=== PATIENT | female | born 1975 | race Caucasian/White ===

== ENCOUNTER → 2017-06-03 | Outpatient (REF) | payer OTHER | LOC: M SFHCWAGY 09:15 | PROVIDERS: ATTEND Nurse Practitioner Family | DX: Z12.4 Encounter for screening for malignant neoplasm of cervix (principal) ==

== ENCOUNTER → 2017-06-03 | Outpatient (CLI) | payer OTHER ==
--- NOTE | 2017-06-03 09:33 | REPMRS ---
Patient History The patient states she had a clinical breast exam in 05/2017. Family history of breast cancer in maternal cousin at age 38. Digital Woman Screen Mammo: June 03, 2017 - Exam #: [id number] Bilateral CC and MLO view(s) were taken. Technologist: Radha Gongora, Technologist FINDINGS: The breast tissue is heterogeneously dense. This may lower the sensitivity of mammography. There is no evidence of cancer on this mammogram. ASSESSMENT: BI-RADS/ACR category 2 mammogram. Benign finding(s). Recommendation Routine screening mammogram of both breasts in 1 year (for women over age 40). This mammogram was interpreted with the aid of an FDA-approved computer-aided dectection system. Electronically Signed By: Arthur Ibarra MD 06/03/17 0932
== END ==
LOC: M WHC 08:12
PROVIDERS: ATTEND Nurse Practitioner Family
DX: Z12.31 Encounter for screening mammogram for malignant neoplasm of breast (principal); R92.8 Other abnormal and inconclusive findings on diagnostic imaging of breast

== ENCOUNTER → 2017-10-10 | Outpatient (REF) | payer OTHER | LOC: M SFHCPLAZ 13:37 | DX: N39.0 Urinary tract infection, site not specified (principal) ==

== ENCOUNTER 2017-12-15 09:46 | Day surgery (SDC) | payer OTHER ==
[~2017-12-15 09:46] MED LIST: LIDOCAINE 2% INJ 100 MG/5 ML SDV (FOR ANES.) As Ordered; MIDAZOLAM INJ 2 MG/2 ML VIAL (J2250) As Ordered; PROPOFOL 200 MG/20 ML VIAL As Ordered; ROCURONIUM BROMIDE 50 MG/5 ML VIAL As Ordered; fentaNYL 250 MCG/5 ML INJECTION (J3010) As Ordered
[2017-12-15] MEDS ORDERED: LIDOCAINE 1% MDV 20ML VIAL SQ (10:00)
[2017-12-15] MEDS ORDERED: LR 1,000 ML IV (10:00)
[2017-12-15 10:18] LABS: HEMATOCRIT 36.4 % (36.0-47.0); HEMOGLOBIN 12.6 g/dl (12.0-15.5); MEAN CORPUSCULAR HEMOGLOBIN 31.4 pg (27.0-33.0); MEAN CORPUSCULAR HGB CONC 34.6 g/dl (32.0-36.5); MEAN CORPUSCULAR VOLUME 90.8 fl (80.0-96.0); PLATELET COUNT, AUTOMATED 215 10^3/uL (150-450); RED BLOOD COUNT 4.01 10^6/uL (4.00-5.40); RED CELL DISTRIBUTION WIDTH 11.3 % (11.5-14.5); WHITE BLOOD COUNT 7.6 10^3/uL (4.0-10.0)
[2017-12-15 10:52] LABS: CONTROL LINE HCG INT CTR LINE PRESENT; HCG, SERUM QUALITATIVE NEGATIVE (NEGATIVE)
[2017-12-15] MEDS ORDERED: SCOPOLAMINE 1MG TRANSDERMAL PATCH As Ordered (11:08)
[2017-12-15] MEDS: SCOPOLAMINE 1MG TRANSDERMAL PATCH TOP (11:45)
[2017-12-15] MEDS ORDERED: MORPHINE 1MG/ML IN 0.9% NACL 100ML IV BAG As Ordered (13:11)
[2017-12-15] MEDS ORDERED: fentaNYL 100 MCG/2 ML INJECTION (J3010) As Ordered (13:29)
[2017-12-15] MEDS: fentaNYL 100 MCG/2 ML INJECTION (J3010) IV ×4 (13:35→13:55)
[2017-12-15] MEDS ORDERED: MORPHINE 1MG/ML IN 0.9% NACL 100ML IV BAG IV (14:30)
[2017-12-15] MEDS ORDERED: NALBUPHINE HCL 10 MG/ML AMP (J2300) IV (14:30)
[2017-12-15] MEDS ORDERED: EPIDURAL/PCA KEYS XX (14:30)
[2017-12-15] MEDS: LR 1,000 ML IV ×2 (14:30→19:55)
[2017-12-15] MEDS ORDERED: NALOXONE INJ 0.4 MG/1 ML VIAL (J2310) IV (14:30)
[2017-12-15] MEDS ORDERED: diphenhydrAMINE INJ 50MG/ML VIAL (J1200) IV (14:30)
[2017-12-15] MEDS ORDERED: ONDANSETRON 4MG/2ML VIAL (J2405) IV (14:30)
[2017-12-15] MEDS ORDERED: PERCOCET 5MG/325MG TAB PO (14:30)
[2017-12-15] MEDS: IBUPROFEN 600 MG TAB PO (19:56)
[2017-12-16] MEDS: IBUPROFEN 600 MG TAB PO ×2 (02:22→09:17)
[2017-12-16] MEDS: LR 1,000 ML IV (02:22)
[2017-12-16] MEDS ORDERED: NORCO, ANEXSIA 5/325MG TABLET (HYDROcodone/ACETAMINOPHEN) PO (06:00)
[2017-12-16 06:32] LABS: HEMATOCRIT 31.3 % (36.0-47.0); HEMOGLOBIN 10.9 g/dl (12.0-15.5); MEAN CORPUSCULAR HEMOGLOBIN 31.7 pg (27.0-33.0); MEAN CORPUSCULAR HGB CONC 34.8 g/dl (32.0-36.5); PLATELET COUNT, AUTOMATED 203 10^3/uL (150-450); RED BLOOD COUNT 3.44 10^6/uL (4.00-5.40); RED CELL DISTRIBUTION WIDTH 11.3 % (11.5-14.5); WHITE BLOOD COUNT 16.2 10^3/uL (4.0-10.0)
== END 2017-12-16 09:55 | disposition home or self-care (01) ==
LOC: M SDC 12-16 09:55 → M PED 14:48
DX: R10.2 Pelvic and perineal pain (principal); N94.10 Unspecified dyspareunia; L98.9 Disorder of the skin and subcutaneous tissue, unspecified; Z72.0 Tobacco use
CPT/HCPCS: 58291

== ENCOUNTER → 2018-02-13 | Outpatient (REF) | payer OTHER ==
[2018-02-13 12:07] LABS: HEMATOCRIT 38.6 % (36.0-47.0); HEMOGLOBIN 13.3 g/dl (12.0-15.5); MEAN CORPUSCULAR HEMOGLOBIN 31.1 pg (27.0-33.0); MEAN CORPUSCULAR HGB CONC 34.5 g/dl (32.0-36.5); MEAN CORPUSCULAR VOLUME 90.4 fl (80.0-96.0); PLATELET COUNT, AUTOMATED 265 10^3/uL (150-450); RED BLOOD COUNT 4.27 10^6/uL (4.00-5.40); RED CELL DISTRIBUTION WIDTH 11.8 % (11.5-14.5); WHITE BLOOD COUNT 8.5 10^3/uL (4.0-10.0)
[2018-02-13 12:51] LABS: TOTAL 25(OH) VITAMIN D 19.3 NG/ML (30.0-100.0)
[2018-02-13 13:01] LABS: FREE T4 1.08 NG/DL (0.76-1.46)
== END ==
LOC: M SFHCPLAZ 09:25
DX: R53.83 Other fatigue (principal)

== ENCOUNTER → 2018-11-20 | Outpatient (REF) | payer OTHER ==
[~2018-11-20] MED LIST changes: +IBUP-1022 PO; -LIDOCAINE 2% INJ 100 MG/5 ML SDV (FOR ANES.) As Ordered; -MIDAZOLAM INJ 2 MG/2 ML VIAL (J2250) As Ordered; +NORC1TAB7 PO; -PROPOFOL 200 MG/20 ML VIAL As Ordered; -ROCURONIUM BROMIDE 50 MG/5 ML VIAL As Ordered; -fentaNYL 250 MCG/5 ML INJECTION (J3010) As Ordered
[2018-11-20 10:18] LABS: HEMATOCRIT 39.9 % (36.0-47.0); HEMOGLOBIN 13.6 g/dl (12.0-15.5); MEAN CORPUSCULAR HGB CONC 34.1 g/dl (32.0-36.5); MEAN CORPUSCULAR VOLUME 93.9 fl (80.0-96.0); PLATELET COUNT, AUTOMATED 306 10^3/uL (150-450); RED BLOOD COUNT 4.25 10^6/uL (4.00-5.40); WHITE BLOOD COUNT 10.2 10^3/uL (4.0-10.0)
[2018-11-20 10:54] LABS: CHOLESTEROL RISK RATIO 3.711 (<5)
[2018-11-20 10:59] LABS: TOTAL 25(OH) VITAMIN D 29.8 NG/ML (30.0-100.0)
== END ==
LOC: M SFHCPLAZ 07:53
PROVIDERS: ATTEND Family Medicine
DX: Z86.2 Personal history of diseases of the blood and blood-forming organs and certain disorders involving the immune mechanism (principal); Z13.1 Encounter for screening for diabetes mellitus; Z13.220 Encounter for screening for lipoid disorders; E55.9 Vitamin D deficiency, unspecified

== ENCOUNTER → 2018-11-24 | Outpatient (CLI) | payer OTHER ==
--- NOTE | 2018-11-24 17:18 | REP ---
BILATERAL MAMMOGRAM WITH 3D TOMOSYNTHESIS, LEFT BREAST ULTRASOUND: Patient complains of tenderness with palpation in the medial left breast during recent clinical exam. No palpable lump was appreciated. Family history of breast cancer at age 38 in maternal cousin. Comparison made with prior study of 06/03/2017. Breast parenchyma is moderately dense in a heterogeneous pattern which somewhat limits the exam. No mass is seen. No clustered microcalcifications are seen. No mammographic abnormality is seen in the medial left breast in the region of tenderness. Real-time sonographic evaluation of medial left breast performed in the region of the tenderness. No cystic or solid nodule is seen. IMPRESSION: ACR 2 benign. No mass or clustered microcalcifications. No mammographic or sonographic abnormality in medial aspect of the left breast where the patient complained of tenderness during clinical exam. BIRADS 2: BI-RADS/ACR category 2 mammogram. Benign Findings. Recommend followup mammogram in one year. This mammogram was interpreted with the aid of an FDA-approved computer-aided detection system. The patient letter being requested is M1 Electronically Signed by Arthur Ibarra MD 11/29/2018 11:47 A
== END ==
LOC: M RAD 13:10
PROVIDERS: ATTEND Family Medicine
DX: N64.4 Mastodynia (principal); Z85.3 Personal history of malignant neoplasm of breast
CPT/HCPCS: 76642; 77066; G0279

== ENCOUNTER → 2020-11-15 | Outpatient (CLI) | payer OTHER ==
[2020-11-15 12:30] LABS: HEMATOCRIT 41.9 % (36.0-47.0); HEMOGLOBIN 14.2 g/dl (12.0-15.5); MEAN CORPUSCULAR HEMOGLOBIN 31.4 pg (27.0-33.0); MEAN CORPUSCULAR HGB CONC 33.9 g/dl (32.0-36.5); MEAN CORPUSCULAR VOLUME 92.7 fl (80.0-96.0); PLATELET COUNT, AUTOMATED 255 10^3/uL (150-450); RED BLOOD COUNT 4.52 10^6/uL (4.00-5.40); WHITE BLOOD COUNT 7.9 10^3/uL (4.0-10.0)
[2020-11-15 12:49] LABS: ERYTHROCYTE SEDIMENTATION RATE 5 mm/hr (0-20)
[2020-11-15 12:54] LABS: ALBUMIN 4.1 GM/DL (3.2-5.2); ALT/SGPT 23 U/L (12-78); BILIRUBIN,TOTAL 0.7 MG/DL (0.2-1.0); BLOOD UREA NITROGEN 10 MG/DL (7-18); CALCIUM LEVEL 8.8 MG/DL (8.5-10.1); CARBON DIOXIDE LEVEL 28 MEQ/L (21-32); CHLORIDE LEVEL 105 MEQ/L (98-107); CHOLESTEROL LEVEL 165 MG/DL (<200); CHOLESTEROL RISK RATIO 2.894 (<5); CREATININE FOR GFR 0.74 MG/DL (0.55-1.30); GLOMERULAR FILTRATION RATE > 60.0 (>58); GLUCOSE, FASTING 92 MG/DL (70-100); HDL CHOLESTEROL 57 MG/DL (>40); LDL CHOLESTEROL 95 MG/DL (<100); NON-HDL-C 108 MG/DL; RHEUMATOID FACTOR QUANT < 10.0 IU/ML (<15.0); SODIUM LEVEL 138 MEQ/L (136-145); TOTAL PROTEIN 7.4 GM/DL (6.4-8.2); TRIGLYCERIDES LEVEL 67 MG/DL (<150)
--- NOTE | 2020-11-15 12:54 | REP ---
INDICATION: EFFUSION, LEFT HAND *LABS 1ST* COMPARISON: None. TECHNIQUE: AP, lateral views right and left hand. FINDINGS: The osseous structures and joint spaces are symmetric, intact and normal for age. There is no evidence for acute fracture or dislocation. Surrounding soft tissues are unremarkable. No subcutaneous emphysema or radiodense foreign body. No arthritic degenerative changes appreciated. IMPRESSION: Normal age-appropriate bilateral hand radiographs.. <Electronically signed by Torrey Pearson > 11/15/20 [id number]
[2020-11-17 11:40] LABS: TOTAL 25(OH) VITAMIN D 22.7 NG/ML (30.0-100.0)
[2020-11-19 00:07] LABS: ANTINUCLEAR ANTIBODIES DIRECT Negative (Negative); CYCLIC CITRULLINATED PEPTIDE 3 units (0-19)
== END ==
LOC: M LAB 11:46
PROVIDERS: ATTEND Family Medicine
DX: Z13.1 Encounter for screening for diabetes mellitus (principal); Z13.220 Encounter for screening for lipoid disorders; M25.442 Effusion, left hand; M25.441 Effusion, right hand; E55.9 Vitamin D deficiency, unspecified

== ENCOUNTER 2021-03-08 10:34 | Emergency (ER) | payer OTHER ==
[~2021-03-08] VITALS: Ht 167.6 cm; Wt 88.6 kg
[2021-03-08] MEDS ORDERED: NS 1,000 ML IV ONE ×2 (11:50→14:05)
--- NOTE | 2021-03-08 11:50 | REP ---
INDICATION: dizziness COMPARISON: None. TECHNIQUE: Axial noncontrast images from the skull base to the vertex with coronal reformations. This CT examination was performed using the following dose reduction techniques: Automated exposure control, adjustment of mA and/or kv according to the patient's size, and use of iterative reconstruction technique. FINDINGS: The ventricles, sulci, and cisterns are normal in position and appearance. Ibarra-white differentiation is maintained. No acute intracranial hemorrhage, mass/mass effect, pathology or trauma/injury. No evidence for acute infarction. No extra-axial fluid collection. Calvarium is intact. Paranasal sinuses and mastoid air cells are clear. IMPRESSION: Normal noncontrast head CT. No evidence for acute intracranial pathology or trauma/injury. <Electronically signed by Torrey Pearson > 03/08/21 [id number]
[2021-03-08 12:01] LABS: BASO # 0.1 10^3/uL (0.0-0.2); BASO % 0.7 % (0.0-1.0); EOS # 0.1 10^3/uL (0.0-0.5); EOS % 1.2 % (0.0-3.0); HEMATOCRIT 38.7 % (36.0-47.0); HEMOGLOBIN 13.7 g/dl (12.0-15.5); LYMPH # 1.8 10^3/uL (1.5-5.0); LYMPH % 19.7 % (24.0-44.0); MEAN CORPUSCULAR HGB CONC 35.4 g/dl (32.0-36.5); MEAN CORPUSCULAR VOLUME 90.4 fl (80.0-96.0); MONO # 0.7 10^3/uL (0.0-0.8); MONO % 7.6 % (2.0-8.0); NEUTROPHILS # 6.3 10^3/uL (1.5-8.5); NEUTROPHILS % 70.5 % (36.0-66.0); PLATELET COUNT, AUTOMATED 248 10^3/uL (150-450); RED BLOOD COUNT 4.28 10^6/uL (4.00-5.40); WHITE BLOOD COUNT 8.9 10^3/uL (4.0-10.0)
[2021-03-08 12:37] LABS: ALBUMIN 3.5 GM/DL (3.2-5.2); ALT/SGPT 24 U/L (12-78); BILIRUBIN,DIRECT 0.2 MG/DL (0.0-0.2); BILIRUBIN,TOTAL 0.7 MG/DL (0.2-1.0); CK-MB VALUE MASS < 1.0 NG/ML (<3.6); CPK CREATINE PHOSPHOKINASE 36 U/L (26-192); LIPASE 74 U/L (73-393); MB/CK RELATIVE INDEX 2.78 (< OR =4); THYROID STIMULATING HORMONE 0.912 uIU/ML (0.358-3.740); TOTAL PROTEIN 6.4 GM/DL (6.4-8.2); TROPONIN I < 0.02 NG/ML (< 0.10)
[2021-03-08 16:45] VITALS: BP 129/68
--- NOTE | 2021-03-08 19:25 | ECGEPIP ---
[facility] - ED Test Date: 2021-03-08 Pat Name: TABITHA DUMONT Department: Room: - Gender: Female Manager Rn: SAE : 1975 Requested By: MAYELIN Camarena PA-C Order Number: [id number] Reading MD: Irma George Measurements Intervals [place] Rate: 53 P: 30 [place]: 158 QRS: 70 QRSD: 96 T: 28 QT: 420 QTc: 394 Interpretive Statements Sinus bradycardia No prior Electronically Signed on 03-08-2021 19:25:26 EDT by Irma George
[2021-03-09 12:49] LABS: VITAMIN B12 LEVEL 385 PG/ML (247-911)
== END 2021-03-08 17:24 | disposition home or self-care (01) ==
LOC: EDBD 10:34 → M ED 10:34
DX: R51.9 Headache, unspecified (principal); Z77.098 Contact with and (suspected) exposure to other hazardous, chiefly nonmedicinal, chemicals

== ENCOUNTER 2022-06-09 09:56 | Emergency (ER) | payer OTHER ==
[~2022-06-09] VITALS: Ht 167.6 cm; Wt 90.4 kg
[2022-06-09 11:09] LABS: BASO # 0.1 10^3/uL (0.0-0.2); BASO % 0.5 % (0.0-1.0); EOS # 5.3 10^3/uL (0.0-0.5); HEMATOCRIT 38.2 % (36.0-47.0); HEMOGLOBIN 13.2 g/dl (12.0-15.5); LYMPH # 3.1 10^3/uL (1.5-5.0); LYMPH % 21.5 % (24.0-44.0); MEAN CORPUSCULAR HGB CONC 34.6 g/dl (32.0-36.5); MEAN CORPUSCULAR VOLUME 92.7 fl (80.0-96.0); MONO # 0.9 10^3/uL (0.0-0.8); MONO % 6.4 % (2.0-8.0); NEUTROPHILS # 4.9 10^3/uL (1.5-8.5); NEUTROPHILS % 34.1 % (36.0-66.0); PLATELET COUNT, AUTOMATED 228 10^3/uL (150-450); RED BLOOD COUNT 4.12 10^6/uL (4.00-5.40); WHITE BLOOD COUNT 14.3 10^3/uL (4.0-10.0)
[2022-06-09] MEDS ORDERED: DICYCLOMINE 10 MG CAP PO ONE (11:30)
[2022-06-09] MEDS ORDERED: NS 1,000 ML IV ONE (11:30)
[2022-06-09] MEDS ORDERED: KETOROLAC 30 MG/ML 1ML VIAL IV ONE (11:30)
[2022-06-09 11:32] LABS: ALBUMIN 3.7 G/DL (3.2-5.2); BILIRUBIN,DIRECT 0.2 MG/DL (<0.4); BILIRUBIN,TOTAL 0.5 MG/DL (0.3-1.2); TOTAL PROTEIN 6.6 G/DL (5.7-8.2)
[2022-06-09 11:44] LABS: EOS % 36.9 % (0.0-3.0)
[2022-06-09] MEDS ORDERED: ISOVUE-370 76% 100ML VIAL As Ordered ONE (12:07)
[2022-06-09] MEDS ORDERED: DICY10CA13 PO (13:21)
[2022-06-09 13:30] VITALS: BP 138/62
== END 2022-06-09 14:26 | disposition home or self-care (01) ==
LOC: M ED 09:56
DX: R10.9 Unspecified abdominal pain (principal); R19.7 Diarrhea, unspecified; R51.9 Headache, unspecified; Z90.79 Acquired absence of other genital organ(s); M51.37 Other intervertebral disc degeneration, lumbosacral region; K42.9 Umbilical hernia without obstruction or gangrene
CPT/HCPCS: 74177; 80047; 80076; 83690; 85025; 96374; 99284; J1885

== ENCOUNTER → 2022-06-10 | Outpatient (REF) | payer OTHER ==
[~2022-06-10] MED LIST changes: +DICY10CA13 PO
== END ==
LOC: M LAB REF 19:45
PROVIDERS: ATTEND Physician Assistant
DX: R10.9 Unspecified abdominal pain (principal); R19.7 Diarrhea, unspecified

== ENCOUNTER 2023-11-18 10:27 | Day surgery (SDC) | payer OTHER ==
[~2023-11-18] VITALS: Ht 167.6 cm; Wt 91.0 kg
[~2023-11-18 10:27] MED LIST changes: +DICY-61 PO; -DICY10CA13 PO
[2023-11-18] MEDS: NS 1,000 ML IV ONE (11:00)
[2023-11-18] MEDS ORDERED: propofoL 200 MG/20 ML VIAL As Ordered ONE (12:17)
[2023-11-18] MEDS ORDERED: LIDOCAINE 1% MDV 20ML VIAL As Ordered ONE (12:17)
[2023-11-18] MEDS ORDERED: MIDAZOLAM INJ 2MG/2ML VIAL As Ordered ONE (12:17)
[2023-11-18] MEDS ORDERED: fentaNYL 100 MCG/2 ML INJECTION As Ordered ONE (12:17)
[2023-11-18 13:13] VITALS: BP 111/60; O2SAT 97
== END 2023-11-18 13:16 | disposition home or self-care (01) ==
LOC: M OPP 10:27
PROVIDERS: ATTEND Surgery
DX: Z12.11 Encounter for screening for malignant neoplasm of colon (principal); Z12.12 Encounter for screening for malignant neoplasm of rectum; K63.5 Polyp of colon; K57.30 Diverticulosis of large intestine without perforation or abscess without bleeding; K64.4 Residual hemorrhoidal skin tags; K62.89 Other specified diseases of anus and rectum; Z80.0 Family history of malignant neoplasm of digestive organs; F17.290 Nicotine dependence, other tobacco product, uncomplicated; Z90.711 Acquired absence of uterus with remaining cervical stump
CPT/HCPCS: 45380; 45385; 88305; J2250; J3010

== ENCOUNTER → 2024-09-18 | Outpatient (CLI) | payer OTHER ==
[2024-09-18 15:37] LABS: ALBUMIN 3.8 G/DL (3.2-5.2); ALKALINE PHOSPHATASE 68 U/L (35-104); ALT/SGPT 18 U/L (7.0-40); AST/SGOT 13 U/L (<34); BILIRUBIN,TOTAL 0.5 MG/DL (0.3-1.2); BLOOD UREA NITROGEN 11 MG/DL (9-23); CALCIUM LEVEL 8.7 MG/DL (8.5-10.1); CARBON DIOXIDE LEVEL 26 MMOL/L (20-31); CHLORIDE LEVEL 108 MMOL/L (98-107); CHOLESTEROL LEVEL 170 MG/DL (<200); CHOLESTEROL RISK RATIO 3.49 (<5); GLOMERULAR FILTRATION RATE > 60.0 (>58); GLUCOSE, FASTING 100 MG/DL (60-100); HDL CHOLESTEROL 48.7 MG/DL (>40); LDL CHOLESTEROL 100.9 MG/DL (<100); NON-HDL-C 121.3 MG/DL; POTASSIUM SERUM 4.1 MMOL/L (3.5-5.1); SODIUM LEVEL 142 MMOL/L (136-145); TOTAL PROTEIN 6.9 G/DL (5.7-8.2); TRIGLYCERIDES LEVEL 102 MG/DL (<150)
[2024-09-18 15:38] LABS: BASO # 0.1 10^3/uL (0.0-0.2); BASO % 0.8 % (0.0-1.0); EOS # 0.2 10^3/uL (0.0-0.5); EOS % 2.9 % (0.0-3.0); FREE T4 1.11 NG/DL (0.89-1.76); HEMATOCRIT 39.6 % (36.0-47.0); HEMOGLOBIN 13.4 g/dl (12.0-15.5); LYMPH # 2.4 10^3/uL (1.5-5.0); LYMPH % 32.7 % (24.0-44.0); MEAN CORPUSCULAR HGB CONC 33.8 g/dl (32.0-36.5); MEAN CORPUSCULAR VOLUME 94.5 fl (80.0-96.0); MONO # 0.7 10^3/uL (0.0-0.8); MONO % 9.1 % (2.0-8.0); NEUTROPHILS # 3.9 10^3/uL (1.5-8.5); NEUTROPHILS % 54.1 % (36.0-66.0); PLATELET COUNT, AUTOMATED 258 10^3/uL (150-450); RED BLOOD COUNT 4.19 10^6/uL (4.00-5.40); WHITE BLOOD COUNT 7.3 10^3/uL (4.0-10.0)
[2024-09-18 15:39] LABS: THYROID STIMULATING HORMONE 2.336 uIU/ML (0.55-4.78)
[2024-09-18 17:50] LABS: HEMOGLOBIN A1c 4.9 % (4.0-6.0)
== END ==
LOC: M WUC 10:10
PROVIDERS: ATTEND Registered Nurse
DX: E66.9 Obesity, unspecified (principal)

== ENCOUNTER → 2024-11-27 | Outpatient (REF) | payer OTHER | LOC: M LAB REF 20:12 | PROVIDERS: ATTEND Physician Assistant | DX: R30.0 Dysuria (principal) ==